=== PATIENT | male | born 1965 | race Caucasian/White ===

== ENCOUNTER 2022-01-04 00:43 | Emergency (ER) | payer SELFPAY ==
[2022-01-04] MEDS ORDERED: Ketorolac Tromethamine 30 MG/ML VIAL ONE ×2 (02:09→02:15)
== END 2022-01-04 02:50 | disposition home or self-care (01) ==
LOC: ERS 00:43
DX: H92.02 Otalgia, left ear (principal); J34.89 Other specified disorders of nose and nasal sinuses; I10 Essential (primary) hypertension; F17.210 Nicotine dependence, cigarettes, uncomplicated
CPT/HCPCS: 96372; 99283; J1885

== ENCOUNTER 2022-01-06 05:19 | Emergency (ER) | payer SELFPAY ==
[2022-01-06] MEDS ORDERED: HYDROcodone/Acetaminophen 5/325 mg Tablet ONE (05:56)
== END 2022-01-06 06:23 | disposition home or self-care (01) ==
LOC: ERS 05:19
DX: H60.92 Unspecified otitis externa, left ear (principal); I10 Essential (primary) hypertension; F17.210 Nicotine dependence, cigarettes, uncomplicated
CPT/HCPCS: 99283